=== PATIENT | male | born 1970 | race Caucasian/White ===

== ENCOUNTER 2017-09-10 10:40 | Emergency (ER) | payer SELFPAY ==
[~2017-09-10] VITALS: Ht 172.7 cm; Wt 74.8 kg
[~2017-09-10 10:40] MED LIST: AUGMENTIN 875875 MG PO; B12,B-12,B 12500 MC1 PO; BACTRIM DS 8001 TA1 PO; CEPHALEXIN500 M1 PO; CLARITIN10 MG PO; CLINDAMYCIN HC300 MG PO; CYCLOBENZAPRINE10 MG PO; ERYTHROMYCIN5 MG/G2 OP; FLEXERIL10 MG PO; FLONASE 0.05% 121 EA NAS; HYDROCODONE BIT1 T11 PO; IBU-8800 MG PO; KEFLEX500 MG PO; MOTRIN800 MG PO; Motrin,Rufen800 MG PO; NAPROSYN500 MG PO; NKHM; PERCOCET 325 MG1 TA2 PO; PREDNISONE50 MG PO; ROBAXIN500 MG PO; TRAMADOL HCL50 MG PO; TYLENOL W/CODEI1 TA2 PO; ULTRAM50 MG PO; VIBRAMYCIN100 MG PO; ZANTAC150 MG PO; ZITHROMAX Z PA250 MG PO; [UNRECOGNIZED DRUG - REMARK]
[2017-09-10] MEDS ORDERED: Motrin,Rufen800 MG PO (11:54)
== END 2017-09-10 12:34 | disposition home or self-care (01) ==
LOC: ED 10:40
DX: S01.81XA Laceration without foreign body of other part of head, initial encounter (principal); F17.200 Nicotine dependence, unspecified, uncomplicated; Z90.49 Acquired absence of other specified parts of digestive tract; W01.0XXA Fall on same level from slipping, tripping and stumbling without subsequent striking against object, initial encounter; Y93.89 Activity, other specified; Y92.89 Other specified places as the place of occurrence of the external cause; Y99.8 Other external cause status

== ENCOUNTER 2017-11-30 14:53 | Emergency (ER) | payer SELFPAY ==
[~2017-11-30] VITALS: Ht 172.7 cm; Wt 77.1 kg
[2017-11-30 15:22] LABS: BASO # 0.1 10*3/uL (0.0-0.1); BASO % 0.7 % (0.0-1.0); EOS # 0.1 10*3/uL (0.0-0.4); EOS % 1.5 % (1.0-4.0); HEMATOCRIT 46.8 % (42.0-52.0); HEMOGLOBIN 16.2 g/dl (14.0-18.0); LYMPH % 21.9 % (27.0-41.0); MEAN CELL VOLUME 94.7 fl (80.0-94.0); MEAN CORPUSCULAR HGB 32.8 pg (27.0-31.0); MEAN CORPUSCULAR HGB CONC 34.6 g/dl (33.0-37.0); MEAN PLATELET VOLUME 9.9 fl (9.6-12.3); MONO # 0.7 10*3/uL (0.1-1.0); MONO % 7.9 % (3.0-9.0); NEUT # 6.1 10*3/uL (2.3-7.9); NEUT % 67.7 % (47.0-73.0); PLATELET COUNT AUTOMATED 225 10*3/uL (130-400); RED BLOOD COUNT 4.94 10*6/uL (4.50-5.90); RED CELL DISTRI WIDTH 13.1 % (0-14.5); WHITE BLOOD COUNT 8.9 10*3/uL (4.8-10.8)
[2017-11-30 15:29] LABS: ABG BASE EXCESS -0.8 mmol/L (-2.0-2.0); ABG HCO3 23.2 mmol/l (22-26); ABG O2 SATURATION 99.6 % (95-97); ARTERIAL BLOOD GAS PCO2 36.1 mmHg (35-45); ARTERIAL BLOOD GAS PH 7.417 (7.35-7.45)
[2017-11-30 15:36] LABS: ALBUMIN 3.9 gm/dl (3.1-4.5); ALKALINE PHOSPHATASE 61 U/L (45-117); BUN 18 mg/dl (7-24); CHLORIDE 106 mmol/L (98-107); CREATININE 1.08 mg/dL (0.70-1.30); LIPASE 220 U/L (73-393); POTASSIUM 3.9 mmol/L (3.5-5.1); SGOT/AST 21 IU/L (3-35); SGPT/ALT 36 U/L (12-78); SODIUM 139 mmol/L (136-145); TOTAL PROTEIN 7.1 gm/dL (6.4-8.2)
[2017-11-30 15:38] LABS: TROPONIN I < 0.015 ng/ml (<0.045)
[2017-11-30 15:41] LABS: ACT PARTIAL THROMBO TIME 25.5 SECONDS (20.8-31.5)
== END 2017-11-30 16:16 | disposition short-term general hospital (02) ==
LOC: ED 14:53
PROVIDERS: Emergency Medicine
DX: T58.8X1A Toxic effect of carbon monoxide from other source, accidental (unintentional), initial encounter (principal); Z98.890 Other specified postprocedural states; Z79.899 Other long term (current) drug therapy; Y92.9 Unspecified place or not applicable

== ENCOUNTER 2018-08-25 10:29 | Emergency (ER) | payer SELFPAY ==
[~2018-08-25] VITALS: Ht 172.7 cm; Wt 74.8 kg
[2018-08-25] MEDS ORDERED: DOXYCYCLINE100 M3 PO (12:28)
[2018-08-25] MEDS ORDERED: PREDNISONE20 M1 PO (12:28)
[2018-08-25] MEDS ORDERED: TESSALON PERLE100 M1 PO ×2 (12:28→12:33)
[2018-08-25] MEDS ORDERED: PROVENTIL HFA6.7 GM INH (12:28)
== END 2018-08-25 12:53 | disposition home or self-care (01) ==
LOC: ED 10:29
DX: J40 Bronchitis, not specified as acute or chronic (principal); F17.200 Nicotine dependence, unspecified, uncomplicated; Z79.1 Long term (current) use of non-steroidal anti-inflammatories (NSAID)

== ENCOUNTER 2019-09-10 11:04 | Emergency (ER) | payer SELFPAY ==
[~2019-09-10] VITALS: Ht 172.7 cm; Wt 77.1 kg
[~2019-09-10 11:04] MED LIST changes: +DOXYCYCLINE100 M3 PO; +PREDNISONE20 M1 PO; +PROVENTIL HFA6.7 GM INH; +TESSALON PERLE100 M1 PO
[2019-09-10] MEDS ORDERED: COMBIVENT RESPIM4 GM INH (13:29)
[2019-09-10] MEDS ORDERED: PREDNISONE50 MG PO (13:29)
[2019-09-10] MEDS ORDERED: VIBRAMYCIN100 MG PO (13:29)
[2019-09-10] MEDS ORDERED: CHANTIX1 M1 PO (13:30)
== END 2019-09-10 13:34 | disposition home or self-care (01) ==
LOC: ED 11:04
DX: J20.9 Acute bronchitis, unspecified (principal)

== ENCOUNTER 2020-05-31 11:30 | Emergency (ER) | payer SELFPAY ==
[~2020-05-31] VITALS: Ht 172.7 cm; Wt 77.1 kg
[~2020-05-31 11:30] MED LIST changes: +CHANTIX1 M1 PO; +COMBIVENT RESPIM4 GM INH
[2020-05-31] MEDS ORDERED: ANTIBIOTIC28.4 GM T (12:10)
== END 2020-05-31 12:14 | disposition home or self-care (01) ==
LOC: ED 11:30
DX: S30.860A Insect bite (nonvenomous) of lower back and pelvis, initial encounter (principal); Z79.899 Other long term (current) drug therapy; W57.XXXA Bitten or stung by nonvenomous insect and other nonvenomous arthropods, initial encounter; Y93.89 Activity, other specified; Y92.89 Other specified places as the place of occurrence of the external cause; Y99.8 Other external cause status

== ENCOUNTER → 2020-09-23 | Outpatient (CLI) | payer OTHER ==
[~2020-09-23] MED LIST changes: +ANTIBIOTIC28.4 GM T
[2020-09-23 13:47] LABS: ALBUMIN 3.5 gm/dl (3.1-4.5); ALKALINE PHOSPHATASE 64 U/L (45-117); BUN 11 mg/dl (7-24); CHLORIDE 107 mmol/L (98-107); CREATININE 1.16 mg/dL (0.70-1.30); POTASSIUM 4.2 mmol/L (3.5-5.1); SGOT/AST 17 IU/L (3-35); SGPT/ALT 27 U/L (12-78); SODIUM 138 mmol/L (136-145); TOTAL PROTEIN 7.3 gm/dL (6.4-8.2)
== END | disposition home or self-care (01) ==
LOC: LAB 12:15
PROVIDERS: ATTEND Orthopaedic Surgery
DX: Z79.1 Long term (current) use of non-steroidal anti-inflammatories (NSAID) (principal)

== ENCOUNTER 2024-02-10 10:04 | Emergency (ER) | payer OTHER ==
[~2024-02-10] VITALS: Ht 172.7 cm; Wt 79.4 kg
[2024-02-10] MEDS ORDERED: Motrin,Rufen800 MG PO (11:00)
== END 2024-02-10 11:07 | disposition home or self-care (01) ==
LOC: ED 10:04
DX: S86.912A Strain of unspecified muscle(s) and tendon(s) at lower leg level, left leg, initial encounter (principal); S49.92XA Unspecified injury of left shoulder and upper arm, initial encounter; Z90.49 Acquired absence of other specified parts of digestive tract; Z98.890 Other specified postprocedural states; W11.XXXA Fall on and from ladder, initial encounter; Y93.89 Activity, other specified; Y92.89 Other specified places as the place of occurrence of the external cause; Y99.8 Other external cause status